=== PATIENT | male | born 1985 | race Caucasian/White ===

== ENCOUNTER 2017-03-15 05:54 | Emergency (ER) | payer MEDICAID, OTHER ==
[2017-03-15] MEDS ORDERED: ONDANSETRON 4 MG TAB.RAPDIS PO ONE (07:11)
--- NOTE | 2017-03-15 07:14 | ERNOTE ---
Medical Problem HPI - General Chief Complaint: Nausea/Vomiting Time Seen by Provider: 03/15/17 07:04 Source: patient Exam Limitations: no limitations - Immun/Allergies/Home Medications Immunizations: IMMUNIZATION HX Immunizations Up to Date Yes History of Influenza Vaccine No Hx Pneumococcal Vaccination No Allergies/Adverse Reactions: Allergies No Known Allergies Allergy (Verified 03/15/17 06:14) Home Medications: HOME MEDICATIONS NK [No Home Medication] 10/19/15 [Last Taken Unknown] - History of Present History Narrative: Pt has been nauseous since yesterday. Has not vomited but has had some "reflux " into the back of his throat. Timing: constant Severity: moderate Modifying Factors - (Worsens): Present: eating Review of Systems - Review of Systems Constitutional: Present: chills, diaphoresis, fatigue - has been sleeping a lot and falling asleep at work. Absent: recent illness EYE: Present: no symptoms reported ENT: Absent: sore throat Respiratory: Present: no symptoms reported Cardiology: Present: no symptoms reported Gastrointestinal/Abdominal: Present: See HPI Genitourinary: Present: no symptoms reported Musculoskeletal: Present: no symptoms reported Skin: Present: no symptoms reported Neurological: Present: no symptoms reported Endocrine: Present: no symptoms reported Hematologic/Lymphatic: Present: no symptoms reported Psych: Present: no symptoms reported - Patient's Past Medical History Patient History - Medical: No pertinent hx, Anxiety, Depression Patient History - Cardiac/Respiratory: No pertinent hx, Asthma, Bronchitis, Hyperlipidemia Patient History - Cancer: No Hx of Cancer Patient History - Surgical Procedures: Cholecystectomy Patient History - Other: None - Social History Living Situations: home Abuse History: No History of abuse Psych History: Hx of Anxiety, Hx of Depression Have you smoked in the past 12 months: Yes Patient requests Smoking Cessation Consult: No Initiate information on Smoking Cessation: No Alcohol Use: none Drug Use: none - Immunizations Immunizations Up to Date: Yes Hx Pneumococcal Vaccination: No History of Influenza Vaccine: No Physical Exam - Physical Exam General Appearance: Present: wd/wn, alert, no apparent distress Eye Exam: Normal inspection: bilateral Ears, Nose, Throat: Present: normal ENT inspection Neck: Present: normal inspection, nontender, supple Respiratory: Present: no respiratory distress, normal breath sounds, chest nontender, lungs clear Cardiovascular/Chest: Present: regular rate, rhythm, no murmur, normal peripheral pulses Gastrointestinal/Abdominal: Present: nontender, nondistended, soft, abnormal bowel sounds - hyperactive Back Exam: Present: normal inspection, normal range of motion, no vertebral tenderness Extremity Exam: Present: normal inspection, normal range of motion, no edema Neurological Exam: Present: alert, oriented, normal mood/affect Skin Exam: Present: normal color, warm/dry ED Progress - Results and Orders Patient's Lab Results:: I have reviewed the patient's lab results. Results and Orders: Laboratory Tests 03/15/17 03/15/17 07:16 07:16 WBC 14.6 H Hgb 16.1 Hct 47.6 Plt Count 307 Sodium 140 Potassium 4.0 Chloride 104 Carbon Dioxide 29.5 Anion Gap 10.5 BUN 7 Creatinine 0.96 Est GFR (Non-Af Amer) 96 BUN/Creatinine Ratio 7.3 L Random Glucose 95 Calcium 8.5 Total Bilirubin 0.3 AST 23 ALT 52 Alkaline Phosphatase 93 Total Protein 7.1 Albumin 3.8 Amylase 42 Lipase 226 - Vital Signs Patient's Vital Signs:: I have reviewed the patient's vital signs. Vital Signs: Vital Signs 03/15/17 03/15/17 06:04 06:48 Temperature 36.8 C Pulse Rate 76 67 Respiratory 14 Rate Blood Pressure 148/81 122/85 O2 Sat by Pulse 100 97 Oximetry - X-Ray X-Ray #1 X-Ray: abdomen Interpretation: Reviewed by me X-ray Comments: moderate to severe stool retention without evidence for obstruction. - Progress/Reassessment Chief Complaint: Nausea/Vomiting Departure - Departure Clinical Impression: Constipation Qualifiers: Constipation type: unspecified constipation type Qualified Code(s): K59.00 - Constipation, unspecified Disposition: Home self-care Condition: Good Instructions: Constipation, Adult, [id number] Additional Instructions: You may take another dose of milk of magnesia 6-8 hours after this mornings dose if you have no results. See your regular doctor if not improving Referrals: NONE,NONE [Primary Care Provider] -
[2017-03-15 07:24] LABS: Hematocrit 47.6 % (42.0-52.0); Hemoglobin 16.1 gm/dL (13.5-18.0); Mean Cell Volume 89.1 fl (78-100); Mean Corpuscular Hemoglobin 30.1 pg (27-31); Mean Corpuscular Hgb Conc 33.8 g/dl (32-36); Neutrophil # 9.5 K/mm3 (1.3-6.0); Neutrophil % 65.1 % (42-75.0); Platelet Count 307 K/mm3 (150-450); Red Blood Count 5.34 M/mm3 (4.7-6.0); Red Cell Distribution Width 13.1 % (11.5-14.0); White Blood Count 14.6 K/mm3 (4.0-10.5)
[2017-03-15] MEDS ORDERED: ONDANSETRON 4 MG TAB.RAPDIS ONE (07:26)
--- OUTSIDE RECORDS SUMMARY | 2017-03-15 07:28 | XMS REPORT | Continuity of Care Document ---
:1985 Author Organization [facility] Address [place] [address] Care Team Providers Name Role Phone Unavailable Primary Care Provider Unavailable Source Comments This disclosure is being made pursuant to the [employer] program and maynot contain all information available regarding this patient.[facility] Active Allergies and Adverse Reactions Not on File Current Medications Be aware that medications may not be up to date as of this document. Alwaysverify current medications with the patient. Not on file Active Problems Not on file Social History Tobacco Use Types Packs/Day Years Used Date Never Assessed Plan of Care Health Maintenance Due Date Last Done Comments Retired-Pertussis Vaccine Adult 2003 Retired-Tetanus Vaccine Adult 2003 Retired-INFLUENZA VACCINE 06/30/2015 Results from Last 3 Months Not on file
[2017-03-15 07:36] LABS: Albumin * 3.8 gm/dl (3.4-5.0); Anion Gap 10.5 mmol/L (6.8-13.8); BUN/Creatinine Ratio 7.3 (9.0-21.6); Bilirubin, Total 0.3 mg/dL (0.0-1.1); Ca. Corrected For Albumin 8.3 mg/dL (8.4-10.2); Calcium * 8.5 mg/dL (7.9-10.9); Carbon Dioxide 29.5 mmol/L (24-32.6); Total Protein 7.1 gm/dL (6.2-8.2)
[2017-03-15 07:48] VITALS: BP 134/89
[2017-03-15] MEDS ORDERED: MAGNESIUM HYDROXIDE 30 ML UDC PO ONE (07:54)
== END 2017-03-15 08:13 | disposition home or self-care (01) ==
LOC: ER 05:54
DX: K59.00 Constipation, unspecified (principal)

== ENCOUNTER 2017-12-14 12:19 | Emergency (ER) | payer MEDICAID ==
[2017-12-14 12:31] VITALS: BP 134/93
--- NOTE | 2017-12-14 13:27 | ERNOTE ---
Upper Extremity HPI - Narrative Date of Service: 12/14/17 - General Extremities Pain Location: hand: right Time Seen by Provider: 12/14/17 12:45 Source: patient - Immun/Allergies/Home Medications Immunizations: IMMUNIZATION HX Immunizations Up to Date Yes History of Influenza Vaccine No Hx Pneumococcal Vaccination No Allergies/Adverse Reactions: Allergies Allergy/AdvReac Type Severity Reaction Status Date / Time No Known Allergies Allergy Verified 12/14/17 12:31 Home Medications: HOME MEDICATIONS NK [No Home Medication] 12/14/17 [Last Taken Unknown] - History of Present Illness Narrative: patient working with [employer], jammed right hand Occurred: yesterday Location of Incident: home Severity: mild Method of Injury: Reports: direct blow Reason for Fall: Reports: other - no fall Modifying Factors - (Improves): Reports: cold therapy Modifying Factors - (Worsens): Reports: movement Associated Symptoms: Reports: other - trevor Review of Systems - Narrative Narrative: unremarkable - Review of Systems Constitutional: Present: See HPI EYE: Present: no symptoms reported ENT: Present: no symptoms reported Respiratory: Present: no symptoms reported Cardiology: Present: no symptoms reported Gastrointestinal/Abdominal: Present: no symptoms reported Genitourinary: Present: no symptoms reported Musculoskeletal: Present: joint pain, joint swelling, other - right hand Skin: Present: no symptoms reported Neurological: Present: no symptoms reported Endocrine: Present: no symptoms reported Hematologic/Lymphatic: Present: no symptoms reported Psych: Present: no symptoms reported All Other Systems: All systems neg except as marked - Narrative Narrative: unremarkable - Patient's Past Medical History Patient History - Medical: Anxiety, Depression Patient History - Cardiac/Respiratory: Asthma, Bronchitis, Hyperlipidemia Patient History - Cancer: No Hx of Cancer Patient History - Surgical Procedures: Cholecystectomy Patient History - Other: None - Family History Family History:: no untoward family reactions to anesthesia, no familial bleeding tendencies, no family history of clotting disorders, no family history of premature - Social History Living Situations: spouse Abuse History: No History of abuse Psych History: Hx of Anxiety, Hx of Depression Does anyone smoke in the home?: Yes Smoking Status: Current every day smoker Have you smoked in the past 12 months: Yes Do you dip or chew tobacco: No Patient requests Smoking Cessation Consult: No Initiate information on Smoking Cessation: No Alcohol Use: rarely Drug Use: none - Immunizations Immunizations Up to Date: Yes Hx Pneumococcal Vaccination: No History of Influenza Vaccine: No Physical Exam - Physical Exam General Appearance: Present: mild distress Head Exam: Present: normal inspection, no evidence of injury Eye Exam: Normal inspection: bilateral, PERRL: bilateral, EOMI: bilateral Ears, Nose, Throat: Present: normal ENT inspection Neck: Present: normal inspection, nontender Respiratory: Present: no respiratory distress, normal breath sounds, no accessory muscle use, chest nontender, lungs clear Cardiovascular/Chest: Present: regular rate, rhythm, no murmur, normal peripheral pulses Peripheral Pulses: N=norm/S=strong/W=weak/B=bound/A=absent: Carotid (R): Normal , Carotid (L): Normal, Radial (R): Normal, Radial (L): Normal, Femoral (R): Normal, Femoral (L): Normal, Dorsalis-pedis (R): Normal, Dorsalis-pedis (L): Normal Gastrointestinal/Abdominal: Present: normal bowel sounds, nontender, nondistended, soft, no organomegaly Back Exam: Present: normal inspection, normal range of motion, no CVA tenderness , no vertebral tenderness Extremity Exam: Present: bony tenderness, joint swelling, other - right hand swollen no ddeformity Neurological Exam: Present: alert, oriented, normal mood/affect, no motor/ sensory deficits Skin Exam: Present: normal color, warm/dry Lymphatic Exam: Present: no adenopathy ED Progress - Date and Time Seen: Date and Time: 12/14/17 13:23 unchasnged - Vital Signs Patient's Vital Signs:: I have reviewed the patient's vital signs. Vital Signs: Vital Signs 12/14/17 12/14/17 12:26 12:42 Temperature 36.4 C L 36.4 C L Pulse Rate 64 64 Respiratory 14 14 Rate Blood Pressure 134/93 134/93 O2 Sat by Pulse 100 100 Oximetry - X-Ray X-Ray #1 X-Ray: hand Interpretation: Interp. by ms - no defomities - Progress/Reassessment Chief Complaint: Hand Injury/Pain - Transfer of Care Expected Disposition: Discharge Plan - Plan Plan: to be discharged Departure Clinical Impression: Sprain of hand, right - Departure Disposition: Home self-care Condition: Fair Instructions: Hand Contusion, [id number]
== END 2017-12-14 13:41 | disposition home or self-care (01) ==
LOC: ER 12:19
DX: S63.91XA Sprain of unspecified part of right wrist and hand, initial encounter (principal); F17.210 Nicotine dependence, cigarettes, uncomplicated; E78.5 Hyperlipidemia, unspecified; J45.909 Unspecified asthma, uncomplicated; F32.9 Major depressive disorder, single episode, unspecified; F41.9 Anxiety disorder, unspecified; Z90.49 Acquired absence of other specified parts of digestive tract; X58.XXXA Exposure to other specified factors, initial encounter; Y99.0 Civilian activity done for income or pay